=== PATIENT | male | born 1970 | race Caucasian/White ===

== ENCOUNTER 2024-02-25 12:22 | Emergency (ER) | payer BC, SELFPAY ==
[2024-02-25 12:24] VITALS: BP 134/95
[2024-02-25 12:43] LABS: % Basophils 0.7 % (0-2); % Eosinophils 2.1 % (0-6); % Immature Granulocytes 0.2 % (0-0.5); % Lymphocytes 27.4 % (20.5-51.1); % Monocytes 13.5 % (1.7-9.3); % Neutrophils 56.1 % (42.2-75.2); Absolute Eosinophils 0.1 10^3/uL (0-0.7); Absolute Lymphocytes 1.6 10^3/uL (1.2-3.4); Absolute Monocytes 0.8 10^3/uL (0.1-0.6); Absolute Neutrophils 3.2 10^3/uL (1.4-6.5); Hematocrit 45.6 % (39.0-52.0); Hemoglobin 15.4 g/dL (13.0-18.0); Mean Corp Hgb Conc. 33.8 g/dL (33.0-37.0); Mean Corpuscular Hgb 29.8 pg (27.0-31.0); Mean Corpuscular Volume 88.2 fL (80.0-94.0); Mean Platelet Volume 10.1 fL (7.4-10.4); Nucleated Red Blood Cells % 0 % (-); Platelet Count 259 10^3/uL (130-400); Red Blood Cell Count 5.17 10^6/uL (4.70-6.10); Red Cell Dist. Width 12.8 % (11.5-14.5); White Blood Cell Count 5.7 10^3/uL (4.8-10.8)
[2024-02-25 12:56] LABS: ALT (SGPT) 41 U/L (0-50); AST (SGOT) 31 U/L (17-59); Albumin 4.9 g/dl (3.5-5.0); Alkaline Phosphatase 67 U/L (38-126); Blood Urea Nitrogen 15 mg/dl (9-20); Calcium 9.5 mg/dl (8.4-10.2); Carbon Dioxide 28 mmol/L (22-30); Chloride 104 mmol/L (98-107); Glucose 98 mg/dl (70-99); Potassium 4.6 mmol/L (3.5-5.1); Sodium 145 mmol/L (135-145); Total Bilirubin 1.2 mg/dl (0.2-1.3); Total Protein 7.8 g/dl (6.3-8.2); eGFR > 60.00
--- NOTE | 2024-02-25 14:36 | EDRN ---
Ulises SOLIMAN in room w/ pt at this time.
[2024-02-25 15:18] VITALS: BMI 29.9
[2024-02-25 15:23] VITALS: BP 114/89
--- NOTE | 2024-02-25 22:16 | ED.GENMED ---
History of Present Illness
General
Chief Complaint: Rectal Bleeding
Source: patient
Exam Limitations: none
Time Seen by Provider: 02/25/24 14:31
Nursing documentation reviewed up to this point in time: agreed with
History of Present Illness
History of Present Illness:
Patient to ED with complaint of rectal bleeding. States after BM yesterday and this AM he noted blood in bowl and blood on tissue. Denies any pain. No prior history of same. Denies any abd. pain, n/v/d. Brought self to ED for eval.
Past History
Past History
ED Past Medical History: CAD, HTN, Other (Sarcoidosis) and Other (Takes Lasix for 'just a little fluid retention.'); Negative IDDM
ED Past Surgical History: Cardiac
Social History
Tobacco: Non-smoker
Alcohol: None
Drug: None
Personal:
Living: with family
Employment: Employed (computers)
Family History
Family History: Hypertension and CAD; Negative Early CAD
Review of Systems
Review of Systems
Allergies reviewed?: Yes
All Other Systems: ROS reviewed and negative except as documented in HPI and ROS
Constitutional: Reports no symptoms
EENT: Reports no symptoms
Respiratory: Reports no symptoms
Cardiac: Reports no symptoms
ABD/GI: Reports other (blood in toilet and on tissue paper after BM yesterday and this AM)
: Reports no symptoms
Musculoskeletal: Reports no symptoms
Skin: Reports no symptoms
Neurological: Reports no symptoms
Psychiatric: Reports no symptoms
Phy Exam
General Physical Exam
General Presentation: well appearing and no apparent distress
General age: appears stated age
General Skin: warm and dry
General Habitus: normal
Cardiovascular Exam
Cardiovascular Exam: regular rate/rhythm and no edema
Gastrointestinal Exam
Gastrointestinal Exam: normal bowel sounds, non tender, soft, no organomegaly, non distended and no cva tenderness
Palpation: generalized: No tenderness
Rectal Exam: normal sphincter tone, hemorrhoids, no rectal mass and soft stool
Stool: brown
Guaiac Status: negative
Musculoskeletal Exam
Musculoskeletal Exam: full ROM and neuro vasc intact
Skin Exam
Skin Exam: normal color, warm/dry and no rash
Psychiatric Exam
Psychiatric Exam: normal mood/affect
Course
Orders/Labs/Results
Orders:
Orders
02/25/24 12:29
Complete Blood Count/With Diff Urgent
Comprehensive Metabolic Panel Urgent
Abnormal Lab Results
02/25/24
12:29
Absolute Monos (auto) 0.8 H 10^3/uL
(0.1-0.6)
Monocytes % 13.5 H %
(1.7-9.3)
02/25/24 12:29
02/25/24 12:29
Vital Signs
Initial and Last Documented VS:
Initial Vital Signs
Temp Pulse Resp BP Pulse Ox
97.8 F 103 18 134/95 97
02/25/24 12:24 02/25/24 12:24 02/25/24 12:24 02/25/24 12:24 02/25/24 12:24
Last Documented Vital Signs
Temp Pulse Resp BP Pulse Ox
97.8 F 79 16 114/89 95
02/25/24 12:24 02/25/24 15:23 02/25/24 15:23 02/25/24 15:23 02/25/24 15:23
*Critical Care Note
Total Time (30-74mins, 75-104mins- exclusive of procedures): Not Applicable
Update Note
Update Note:
Patient to ED after noticing blood in toilet and on tissue after BM yesterday and this AM. No active bleeding on exam. Rectal exam normal. Stool heme neg. Labs reviewed, no evidence of anemia. Probable hemorrhoid bleed. Disucssed use of
hemorrhoidal wipes after BM, use of creams/suppositories for pain/itching. Will discharge home. Given number for colorectal. WIll contact in AM for office followup. Given instructions on s/s to return to ED andhe is agreeable to plan
ED Attending Note
-
Portions of this chart may have been created with voice recognition software.� Occasional wrong word or��sound alike� substitutions may have occurred due to the inherent limitations of voice recognition software.
Discharge Plan
Departure
Patient Disposition: Home (Routine Discharge)
Date of Disposition: 02/25/24
Time of Disposition: 14:45
Patient with high blood pressure during this ER visit?: No
Condition: Good
Covid-19: Not Applicable
Discharge Problem:
Hemorrhoids, internal
Instructions: Hemorrhoids (DC)
Prescriptions:
No Action
Entresto 24-26 mg Tablet
1 tab PO BID
furosemide 40 MG tablet
20 mg PO BID@0800,1600
atorvastatin 40 MG tablet
40 mg PO HS
potassium chloride [Klor-Con M20] 20 MEQ tablet,ER particles/crystals
20 meq PO BID@0800,1600
pantoprazole 40 MG tablet,delayed release (DR/EC)
40 mg PO DAILY
aspirin 81 MG tablet,chewable
81 mg PO QPM
metoprolol succinate 25 mg tablet extended release 24 hr
25 mg PO DAILY
dapagliflozin propanediol [Farxiga] 5 mg Tablet
5 mg PO DAILY
levalbuterol tartrate 1 PUFF HFA aerosol inhaler
2 puff inhalation R Q4HPRN PRN (Reason: wheezing/SOB)
Trelegy Ellipta 200-62.5-25 mcg Blister With Device
1 inh INHALATION R DAILY
Referrals:
Mookie Mireles MD [Active] - Call in 1-3 days for appt
Nicolas Adams MD [Family Provider] -
Interventions
Interventions:
*Risk Screen - Suicide Last Done: 02/25/24 12:25
*General Assessment Last Done: 02/25/24 15:18
*Neglect/Abuse Screening Last Done: 02/25/24 12:25
ED- Fall Risk Assessment Last Done: 02/25/24 15:19
*ED COVID-19 Vaccine History Last Done: 02/25/24 15:18
*Nursing Disposition Last Done: 02/25/24 15:28
DE-Jedwnm-Nfxoarmmdw Assessment Last Done: 02/25/24 15:19
ED- Cardiac Assessment Last Done: 02/25/24 15:19
ED- Pulmonary Assessment Last Done: 02/25/24 15:19
Discharge Date and Time
Discharge Date/Time: 02/25/24 15:28
Print Language: CANADIAN
== END 2024-02-25 15:28 | disposition home or self-care (01) ==
LOC: EMR 12:22
PROVIDERS: EMERGENCY PHYSICIAN Emergency Medicine; FAMILY PHYSICIAN Family Medicine
DX: K64.8 Other hemorrhoids (principal); I25.10 Atherosclerotic heart disease of native coronary artery without angina pectoris; I10 Essential (primary) hypertension; D86.9 Sarcoidosis, unspecified; Z82.49 Family history of ischemic heart disease and other diseases of the circulatory system
CPT/HCPCS: 99283; 80053; 85025